=== PATIENT | female | born 1975 | race Caucasian/White ===

== ENCOUNTER 2017-06-26 12:13 | Emergency (ER) | payer BC ==
[~2017-06-26] VITALS: Ht 172.7 cm; Wt 64.9 kg
[2017-06-26 12:25] VITALS: BP 165/98; PULSE 110; RESP 16; TEMP 99.3; O2SAT 100
--- NOTE | 2017-06-26 12:54 | PD ---
HPI Chief Complaint: Dizziness Time Seen by Provider: 12:37 Travel History International Travel<30 days: No Contact w/Intl Traveler<30days: No Traveled to known affect area: No History of Present Illness HPI PATIENT C/O DIZZINESS INTERMITTENTLY, MALAISE, AND WEAKNESS WELL. NO PAIN, ONGOING FOR AT LEAST A WEEK, HAS HAD AN OCCASIONAL COUGH THOUGH NONPROD, NO FEVER, ALL: RASH TO [facility] PCP IS DR Yamini CAGLE PMHX DENIES PSHX DENIES X SINUS SURGERY PFSH Past Medical History Medical History: Denies Significant Hx Tetanus Vaccination: < 5 Years Influenza Vaccination: Yes ?: Not LMP: 06/19/17 Past Surgical History Surgical History: No Previous Surgery Social History Alcohol Use: No Tobacco Use: No Substance Use: No Allergies-Medications (Allergen,Severity, Reaction): Coded Allergies: No Known Allergies (Unverified , 06/26/17) Reported Meds & Prescriptions Reported Meds & Active Scripts Active No Active Prescriptions or Reported Medications Review of Systems Except as stated in HPI: all other systems reviewed are Neg HENT: Positive: Lightheadedness Physical Exam Narrative GENERAL: SKIN: Warm and dry. HEAD: Atraumatic. Normocephalic. EYES: Pupils equal and round. No scleral icterus. No injection or drainage. ENT: No nasal bleeding or discharge. Mucous membranes pink and moist. BILATERAL TM EFFUSION WITHOUT E/O INFECTION NECK: Trachea midline. No JVD. CARDIOVASCULAR: Regular rate and rhythm. RESPIRATORY: No accessory muscle use. Clear to auscultation. Breath sounds equal bilaterally. GASTROINTESTINAL: Abdomen soft, non-tender, nondistended. Hepatic and splenic margins not palpable. MUSCULOSKELETAL: Extremities without clubbing, cyanosis, or edema. No obvious deformities. NEUROLOGICAL: Awake and alert. No obvious cranial nerve deficits. Motor grossly within normal limits. Five out of 5 muscle strength in the arms and legs. Normal speech. PSYCHIATRIC: Appropriate mood and affect; insight and judgment normal. Data Data Last Documented VS Vital Signs Date Time Temp Pulse Resp B/P (MAP) Pulse Ox O2 Delivery O2 Flow Rate FiO2 06/26/17 15:00 100 18 129/80 (96) 100 Room Air 06/26/17 12:25 99.3 Orders Orders Electrocardiogram (06/26/17 12:37) Complete Blood Count With Diff (06/26/17 12:37) Comprehensive Metabolic Panel (06/26/17 12:37) Troponin I (06/26/17 12:37) B-Type Natriuretic Peptide (06/26/17 12:37) Prothrombin Time / Inr (Pt) (06/26/17 12:37) Act Partial Throm Time (Ptt) (06/26/17 12:37) Lipase (06/26/17 12:37) Urinalysis - C+S If Indicated (06/26/17 12:37) D-Dimer (06/26/17 12:37) Thyroid Stimulating Hormone (06/26/17 12:37) Influenzae A/B Antigen (06/26/17 12:37) Chest, Single Ap (06/26/17 12:37) Ct Brain W/O Iv Contrast(Rout) (06/26/17 12:37) Iv Access Insert/Monitor (06/26/17 12:37) Ecg Monitoring (06/26/17 12:37) Oximetry (06/26/17 12:37) Ed Urine Pregnancytest Poc (06/26/17 12:37) Drug Screen, Random Urine (06/26/17 12:37) Alcohol (Ethanol) (06/26/17 12:37) Salicylates (Aspirin) (06/26/17 12:37) Tylenol (Acetaminophen) (06/26/17 12:37) Ct Pulmonary Angiogram (06/26/17 14:29) Ct Abd/Pel W Iv Contrast(Rout) (06/26/17 15:12) Iohexol 350 Inj (Omnipaque 350 Inj) (06/26/17 15:45) Labs Laboratory Tests Test 06/26/17 13:20 06/26/17 13:30 Urine Collection Type CLEAN CATCH Urine Color YELLOW Urine Turbidity CLEAR Urine pH 7.0 Urine Specific Palmer 1.006 Urine Protein NEG mg/dL Urine Glucose (UA) NEG mg/dL Urine Ketones NEG mg/dL Urine Occult Blood TRACE Urine Nitrite NEG Urine Bilirubin NEG Urine Leukocyte Esterase NEG Urine RBC 0-3 /hpf Urine Squamous Epithelial Cells 0-5 /hpf Microscopic Urinalysis Comment CULT NOT INDICATED Urine Opiates Screen NEG Urine Barbiturates Screen NEG Urine Amphetamines Screen NEG Urine Benzodiazepines Screen NEG Urine Cocaine Screen NEG Urine Cannabinoids Screen NEG White Blood Count 6.2 TH/MM3 Red Blood Count 4.27 MIL/MM3 Hemoglobin 12.6 GM/DL Hematocrit 37.0 % Mean Corpuscular Volume 86.5 FL Mean Corpuscular Hemoglobin 29.5 PG Mean Corpuscular Hemoglobin Concent 34.1 % Red Cell Distribution Width 14.3 % Platelet Count 164 TH/MM3 Mean Platelet Volume 6.3 FL CBC Comment AUTO DIFF Differential Total Cells Counted 100 Neutrophils % (Manual) 62 % Band Neutrophils % 1 % Lymphocytes % 26 % Monocytes % 9 % Eosinophils % 1 % Basophils % 1 % Neutrophils # (Manual) 3.9 TH/MM3 Differential Comment FINAL DIFF MANUAL Prothrombin Time 10.7 SEC Prothromb Time International Ratio 1.0 RATIO Activated Partial Thromboplast Time 29.4 SEC D-Dimer Quantitative (PE/DVT) 2.76 MG/L FEU Blood Urea Nitrogen 9 MG/DL Creatinine 0.60 MG/DL Random Glucose 100 MG/DL Total Protein 8.1 GM/DL Albumin 3.6 GM/DL Calcium Level 8.7 MG/DL Alkaline Phosphatase 112 U/L Aspartate Amino Transf (AST/SGOT) 78 U/L Alanine Aminotransferase (ALT/SGPT) 120 U/L Total Bilirubin 0.5 MG/DL Sodium Level 137 MEQ/L Potassium Level 4.1 MEQ/L Chloride Level 102 MEQ/L Carbon Dioxide Level 27.9 MEQ/L Anion Gap 7 MEQ/L Estimat Glomerular Filtration Rate 111 ML/MIN Troponin I LESS THAN 0.02 NG/ML B-Type Natriuretic Peptide 74 PG/ML Lipase 133 U/L Thyroid Stimulating Hormone 3rd Gen 1.590 uIU/ML Salicylates Level LESS THAN 1.7 MG/DL Acetaminophen Level LESS THAN 2.0 MCG/ML Ethyl Alcohol Level LESS THAN 3 MG/DL MDM Medical Decision Making Medical Screen Exam Complete: Yes Emergency Medical Condition: Yes Medical Record Reviewed: Yes Interpretation(s) NSR 97, NO STEMI PATTERN, Differential Diagnosis ANEMIA V DEHYDRATION V V PNA V UTI Narrative Course NO E/O THYROID ABNL, DEHYDRATION, ANEMIA, UTI, OR PNA ON EXAMINATION, HOWEVER ISOLATED ELEVATED D DIMER WAS THE REASON FOR FURTHER INVESTIGATION WITH CT AND ULTRS. no major e/o appy, also no major e/o dvt/pe/aaa on ct study, did find e/ o ovarian cyst (ruptured) which is not significant. additionally on reevaluation abdomen continues without tenderness or pain. patient will be d/c home and advised to follow up with your pcp Diagnosis Primary Impression: GENERAL WEAKNESS WITHOUT SOURCE Additional Instructions: please followup with dr cagle for any additional referrals or evaluation. no evidence of blood clot on ultrasound or clot to your lungs either. Scripts No Active Prescriptions or Reported Meds Disposition: 01 DISCHARGE HOME Condition: Stable Artur Mishra MD Jun 26, 2017 12:54
--- NOTE | 2017-06-26 13:16 | RADRPT ---
EXAM DATE/TIME: 06/26/2017 12:51 [facility] COMPARISON: No previous studies available for comparison. INDICATIONS : Weakness and dizziness for 3 months. MEDICAL HISTORY : None. SURGICAL HISTORY : None. ENCOUNTER: Initial ACUITY: 3 months PAIN SCORE: 0/10 LOCATION: Bilateral chest FINDINGS: A single view of the chest demonstrates the lungs to be symmetrically aerated without evidence of mas s, infiltrate or effusion. The cardiomediastinal contours are unremarkable. Osseous structures are intact. CONCLUSION: 1. No acute cardiopulmonary disease. Darshan Wang MD on June 26, 2017 at 13:15 Board Certified Radiologist. This report was verified electronically.
[2017-06-26 13:30] VITALS: O2SAT 99
[2017-06-26 13:36] LABS: MEAN CELL VOLUME 86.5 FL (80.0-100.0); MEAN CORPUSCULAR HEMOGLOBIN 29.5 PG (27.0-34.0); MEAN CORPUSCULAR HGB CONC 34.1 % (32.0-36.0); PLATELET COUNT 164 TH/MM3 (150-450); RED BLOOD COUNT 4.27 MIL/MM3 (4.00-5.30); RED CELL DISTRIBUTION WIDTH 14.3 % (11.6-17.2); WHITE BLOOD COUNT 6.2 TH/MM3 (4.0-11.0)
[2017-06-26 13:37] LABS: GLUCOSE,URINE NEG (NEG); KETONE, URINE NEG (NEG); NITRITE,URINE NEG (NEG)
[2017-06-26 13:39] LABS: BLOOD, URINE TRACE (NEG)
[2017-06-26 13:40] LABS: METHOD OF COLLECTION CLEAN CATCH; URINE COLOR YELLOW (YELLW/STRAW)
[2017-06-26 13:42] LABS: HEMO FLAGS AUTO DIFF
[2017-06-26 13:46] LABS: COMMENT (UR) CULT NOT INDICATED; CULTURE IF INDICATED CULT NOT INDICATED; RBC, URINE 0-3 /hpf (0-3); SQUAMOUS EPITHELIAL CELL URINE 0-5 /hpf (0-5)
[2017-06-26 13:46] LABS: CHLORIDE 102 MEQ/L (98-107); POTASSIUM 4.1 MEQ/L (3.5-5.1); SODIUM (NA) 137 MEQ/L (136-145)
[2017-06-26 13:49] LABS: ANION GAP 7 MEQ/L (5-15); BICARBONATE 27.9 MEQ/L (21.0-32.0); BLOOD UREA NITROGEN 9 MG/DL (7-18)
[2017-06-26 13:53] LABS: AST (GOT) 78 U/L (15-37)
[2017-06-26 13:54] LABS: ALT (GPT) 120 U/L (10-53); GLOMERULAR FILTRATION RATE 111 ML/MIN (>89)
[2017-06-26 13:55] LABS: ALCOHOL LESS THAN 3 MG/DL (0-5)
[2017-06-26 13:56] LABS: TOTAL BILIRUBIN ADULT 0.5 MG/DL (0.2-1.0)
[2017-06-26 13:58] LABS: ALKALINE PHOSPHATASE 112 U/L (45-117)
[2017-06-26 14:06] LABS: BANDS 1 % (0-6); BASOPHILS 1 % (0-2); EOSINOPHILS 1 % (0-4); NEUTROPHIL # MANUAL DIFF 3.9 TH/MM3 (1.8-7.7); POLYS (SEG NEUTROPHILS) 62 % (16-70); WBC DIFF SAMPLE 100
[2017-06-26 14:07] LABS: SCAN/DIFF FINAL DIFF MANUAL
[2017-06-26 14:18] LABS: APTT (PATIENT) 29.4 SEC (24.3-30.1); PROTHROMBIN TIME - PATIENT 10.7 SEC (9.8-11.6)
--- NOTE | 2017-06-26 14:28 | RADRPT ---
EXAM DATE/TIME: 06/26/2017 14:13 [facility] COMPARISON: No previous studies available for comparison. INDICATIONS : Dizziness and generalized weakness. RADIATION DOSE: 56.72 CTDIvol (mGy) MEDICAL HISTORY : None SURGICAL HISTORY : None. ENCOUNTER: Initial ACUITY: 1 week PAIN SCALE: 0/10 LOCATION: cranial TECHNIQUE: Multiple contiguous axial images were obtained of the head. Using automated exposure control and adj ustment of the mA and/or kV according to patient size, radiation dose was kept as low as reasonably a chievable to obtain optimal diagnostic quality images. DICOM format image data is available electro nically for review and comparison. FINDINGS: CEREBRUM: The ventricles are normal for age. No evidence of midline shift, mass lesion, hemorrhage or acute in farction. Asymmetric basal ganglia calcifications on the right. No extra-axial fluid collections are seen. POSTERIOR FOSSA: The cerebellum and brainstem are intact. The 4th ventricle is midline. The cerebellopontine angle i s unremarkable. EXTRACRANIAL: The visualized portion of the orbits is intact. SKULL: The calvaria is intact. No evidence of skull fracture. CONCLUSION: 1. Asymmetric, benign-appearing basal ganglia calcification on the right. 2. Otherwise negative. Nothing acute. Stevie Michaud MD on June 26, 2017 at 14:24 Board Certified Radiologist. This report was verified electronically.
[2017-06-26 15:00] VITALS: BP 129/80; PULSE 100; RESP 18; O2SAT 100
[2017-06-26] MEDS ORDERED: IOHEXOL 350 MG/ML 10 ML VIAL (for RAD DIAG) IVCONTRAST ONE (15:45)
--- NOTE | 2017-06-26 15:59 | RADRPT ---
EXAM DATE/TIME: 06/26/2017 15:33 [facility] COMPARISON: No previous studies available for comparison. INDICATIONS : Dizziness, lightheaded general weakness for one week IV CONTRAST: 95 cc Omnipaque 350 (iohexol) IV ; Cumulative dose for multiple exams. RADIATION DOSE: 10.73 CTDIvol (mGy) MEDICAL HISTORY : None SURGICAL HISTORY : None. ENCOUNTER: Initial ACUITY: 1 day PAIN SCALE: 0/10 LOCATION: chest TECHNIQUE: Volumetric scanning of the chest was performed using a pulmonary embolism protocol MIP images were re constructed. Using automated exposure control and adjustment of the mA and/or kV according to patien t size, radiation dose was kept as low as reasonably achievable to obtain optimal diagnostic quality images. DICOM format image data is available electronically for review and comparison. Follow-up recommendations for detected pulmonary nodules are based at a minimum on nodule size and pa tient risk factors according to Fleischner Society Guidelines. FINDINGS: PULMONARY ARTERIES: No filling defects are seen in the pulmonary arteries through the segmental level. LUNGS: Mild lingular scarring or atelectasis. PLEURAE: There is no pleural thickening or pleural effusion. MEDIASTINUM: There is good visualization of the great vessels of the middle mediastinum. No evidence of mediastin al or hilar adenopathy/mass. MUSCULOSKELETAL: Within normal limits for patient age. MISCELLANEOUS: Mild splenomegaly. CONCLUSION: No evidence of pulmonary embolism. Minimal lingular atelectasis. Mild splenomegaly Dylon Guillen MD on June 26, 2017 at 15:55 Board Certified Radiologist. This report was verified electronically.
[2017-06-26 16:02] LABS: ACETAMINOPHEN LESS THAN 2.0 MCG/ML (10.0-30.0)
--- NOTE | 2017-06-26 16:03 | RADRPT ---
EXAM DATE/TIME: 06/26/2017 15:33 [facility] COMPARISON: No previous studies available for comparison. INDICATIONS : Generalzed wekness for 1 week IV CONTRAST: 95 cc Omnipaque 350 (iohexol) IV ; Cumulative dose for multiple exams. ORAL CONTRAST: No oral contrast ingested. RADIATION DOSE: 12.30 CTDIvol (mGy) MEDICAL HISTORY : None SURGICAL HISTORY : None. ENCOUNTER: Initial ACUITY: 1 day PAIN SCALE: 0/10 LOCATION: Abdomen TECHNIQUE: Volumetric scanning of the abdomen and pelvis was performed. Using automated exposure control and ad justment of the mA and/or kV according to patient size, radiation dose was kept as low as reasonably achievable to obtain optimal diagnostic quality images. DICOM format image data is available electro nically for review and comparison. FINDINGS: LOWER LUNGS: Minimal scarring in the extreme lingula. LIVER: Homogeneous density without lesion. There is no dilation of the biliary tree. No calcified gallston es. SPLEEN: Spleen is borderline in size. PANCREAS: Within normal limits. KIDNEYS: Normal in size and shape. There is no mass, stone or hydronephrosis. ADRENAL GLANDS: Within normal limits. VASCULAR: Abdominal aorta is normal in caliber containing minimal calcified plaque distally at the bifurcation. No significant mural thrombus or aneurysm. Proximal aortic visceral branches are patent. BOWEL/MESENTERY: The stomach, small bowel, and colon demonstrate no acute abnormality. Appendix is visualized and nor mal in appearance. There is no free intraperitoneal air or fluid. ABDOMINAL WALL: Within normal limits. RETROPERITONEUM: Mildly distended but otherwise unremarkable. BLADDER: No wall thickening or mass. REPRODUCTIVE: There is a small hypodense right adnexal cystic lesion measuring approximately 1 cm. Very subtle flui d is demonstrated surrounding the right ovary extending to the appendix tip. The uterus is unremarkab le for age. INGUINAL: There is no lymphadenopathy or hernia. MUSCULOSKELETAL: Within normal limits for patient age. CONCLUSION: 1. Very subtle free fluid in the right adnexal region surrounding the right ovary. There is a small p robable 1 cm cyst in the right ovary. The appendix tip also extends to this region of fluid. The appe ndix itself appears unremarkable. Overall, findings are most consistent with a possible ruptured ovar oneil cyst. Although unlikely, developing appendicitis cannot be entirely excluded. Therefore, clinical correlation is recommended. 2. Normal-appearing abdominal aorta. No focal aortic abnormality as questioned. Darshan Wang MD on June 26, 2017 at 15:53 Board Certified Radiologist. This report was verified electronically.
[2017-06-26 17:20] VITALS: BP 138/74; PULSE 88; RESP 18; O2SAT 99
--- NOTE | 2017-06-27 14:30 | EKG ---
Date Performed: 06/26/2017 Time Performed: 12:55:03 PTAGE: 41 years EKG: Sinus rhythm POSSIBLE LEFT ATRIAL ENLARGEMENT BORDERLINE ECG NO PREVIOUS TRACING DOCTOR: Walter Cuadra Interpretating Date/Time 06/27/2017 14:29:57
== END 2017-06-26 17:28 | disposition home or self-care (01) ==
LOC: PHED 12:13
DX: R53.1 Weakness (principal)
CPT/HCPCS: 70450; 71010; 71275; 74177; 80053; 80307; 81001; 83690; 83880; 84443; 84484; 84703; 85007; 85027; 85379; 85610; 85730; 87804; 93005; 99285; Q9967

== ENCOUNTER 2018-03-09 16:02 | Emergency (ER) | payer BC, OTHER ==
[~2018-03-09] VITALS: Ht 172.7 cm; Wt 63.0 kg
[2018-03-09 16:07] VITALS: BP 155/90; TEMP 99.8; O2SAT 100
[2018-03-09] MEDS ORDERED: FAMC500T PO (16:16)
[2018-03-09] MEDS ORDERED: SODIUM CHLORID 0.9% 500 ML INJ 500 ML IV ONE (16:30)
--- NOTE | 2018-03-09 16:31 | PD ---
HPI Chief Complaint: Fast heart rate Time Seen by Provider: 16:15 Travel History International Travel<30 days: No Contact w/Intl Traveler<30days: No Traveled to known affect area: No History of Present Illness HPI 42-year-old female states for the past year she has been struggling with mononucleosis. She states because of this she gets a fast heart rate in her usual heart rate is in the 1 teens. She states today it was 140 and she try to calm down and it did not get better so she elected to come here. She states she does have history also of anxiety. She denies any other concurrent complaints other than the elevated heart rate. She states that she has been struggling with this today. She denies specific modifying factors. PFSH Past Medical History Diminished Hearing: No Medical other: Yes (CMV, MONO) Influenza Vaccination: Yes ?: Not LMP: 02/2018 Social History Alcohol Use: No Tobacco Use: No Substance Use: No Allergies-Medications (Allergen,Severity, Reaction): Coded Allergies: No Known Allergies (Unverified Adverse Reaction, Unknown, 03/09/18) Reported Meds & Prescriptions Reported Meds & Active Scripts Active Reported Famciclovir 500 Mg Tab 500 Mg PO BID Review of Systems Except as stated in HPI: all other systems reviewed are Neg Physical Exam Narrative GENERAL: 42-year-old female in no apparent distress SKIN: Focused skin assessment warm/dry. HEAD: Atraumatic. Normocephalic. EYES: Pupils equal and round. No scleral icterus. No injection or drainage. ENT: No nasal bleeding or discharge. Mucous membranes pink and moist. NECK: Trachea midline. CARDIOVASCULAR: Tachycardic rate and regular rhythm. No murmur appreciated. RESPIRATORY: No accessory muscle use. Clear to auscultation. Breath sounds equal bilaterally. GASTROINTESTINAL: Abdomen soft, non-tender, nondistended. MUSCULOSKELETAL: No obvious deformities. No clubbing. No cyanosis. NEUROLOGICAL: Awake and alert. No obvious cranial nerve deficits. Motor grossly within normal limits. Normal speech. Data Data Last Documented VS Vital Signs Date Time Temp Pulse Resp B/P (MAP) Pulse Ox O2 Delivery O2 Flow Rate FiO2 03/09/18 16:37 102 18 128/76 (93) 98 Room Air 03/09/18 16:07 99.8 Orders Orders Complete Blood Count With Diff (03/09/18 16:25) Basic Metabolic Panel (Bmp) (03/09/18 16:25) Electrocardiogram (03/09/18 ) Iv Access Insert/Monitor (03/09/18 16:25) Ecg Monitoring (03/09/18 16:25) Oximetry (03/09/18 16:25) Sodium Chlorid 0.9% 500 Ml Inj (Ns 500 M (03/09/18 16:30) Ed Discharge Order (03/09/18 17:21) Labs Laboratory Tests Test 03/09/18 16:20 White Blood Count 9.1 TH/MM3 Red Blood Count 4.74 MIL/MM3 Hemoglobin 14.4 GM/DL Hematocrit 43.6 % Mean Corpuscular Volume 92.0 FL Mean Corpuscular Hemoglobin 30.4 PG Mean Corpuscular Hemoglobin Concent 33.0 % Red Cell Distribution Width 12.2 % Platelet Count 228 TH/MM3 Mean Platelet Volume 8.0 FL Neutrophils (%) (Auto) 65.3 % Lymphocytes (%) (Auto) 30.1 % Monocytes (%) (Auto) 3.3 % Eosinophils (%) (Auto) 0.9 % Basophils (%) (Auto) 0.4 % Neutrophils # (Auto) 6.0 TH/MM3 Lymphocytes # (Auto) 2.7 TH/MM3 Monocytes # (Auto) 0.3 TH/MM3 Eosinophils # (Auto) 0.1 TH/MM3 Basophils # (Auto) 0.0 TH/MM3 CBC Comment DIFF FINAL Differential Comment Blood Urea Nitrogen 17 MG/DL Creatinine 0.95 MG/DL Random Glucose 98 MG/DL Calcium Level 8.9 MG/DL Sodium Level 140 MEQ/L Potassium Level 3.9 MEQ/L Chloride Level 105 MEQ/L Carbon Dioxide Level 25.5 MEQ/L Anion Gap 10 MEQ/L Estimat Glomerular Filtration Rate 65 ML/MIN MDM Medical Decision Making Medical Screen Exam Complete: Yes Emergency Medical Condition: Yes Medical Record Reviewed: Yes (Past history confirmed) Interpretation(s) EKG shows sinus tachycardia CBC & BMP Diagram 03/09/18 16:20 Calcium Level 8.9 Differential Diagnosis Dehydration, anxiety, anemia Narrative Course Will check basic blood work and if this is normal she can follow as an outpatient. She is in agreement to that. Current heart rate while I was in the room was 110. labs wnl, Patient denies any new complaints and states that they are feeling better. Patient happy with care, all questions answered. Patient knows that follow up is incumbent on them and to return to the emergency room immediately if new or worsening symptoms develop. Patient given strict return precautions, vitals reviewed and are normal, agrees to further workup as an outpatient. Diagnosis Primary Impression: Tachycardia Patient Instructions: General Instructions Additional Instructions: return as needed, follow with primary this week Med/Other Pt SpecificInfo: No Change to Meds Disposition: 01 DISCHARGE HOME Condition: Stable Annalisa Dooley MD Mar 09, 2018 16:31
[2018-03-09 16:37] VITALS: BP 128/76; PULSE 102; RESP 18; O2SAT 98
[2018-03-09 16:58] LABS: BASOPHIL % 0.4 % (0.0-2.0); EOSINOPHIL # 0.1 TH/MM3 (0-0.4); EOSINOPHIL % 0.9 % (0.0-4.0); HEMATOCRIT 43.6 % (35.0-46.0); HEMOGLOBIN 14.4 GM/DL (11.6-15.3); LYMPH % 30.1 % (9.0-44.0); LYMPHOCYTE # 2.7 TH/MM3 (1.0-4.8); MEAN CORPUSCULAR HEMOGLOBIN 30.4 PG (27.0-34.0); MONO % 3.3 % (0.0-8.0); MONOCYTE # 0.3 TH/MM3 (0-0.9); NEUT % 65.3 % (16.0-70.0); PLATELET COUNT 228 TH/MM3 (150-450); RED BLOOD COUNT 4.74 MIL/MM3 (4.00-5.30); RED CELL DISTRIBUTION WIDTH 12.2 % (11.6-17.2); WHITE BLOOD COUNT 9.1 TH/MM3 (4.0-11.0)
[2018-03-09 17:11] LABS: CALCIUM 8.9 MG/DL (8.5-10.1)
[2018-03-09 17:12] LABS: BICARBONATE 25.5 MEQ/L (21.0-32.0)
[2018-03-09 17:15] LABS: CREATININE 0.95 MG/DL (0.50-1.00)
[2018-03-09 17:49] VITALS: BP 128/77
--- NOTE | 2018-03-10 13:50 | EKG ---
Date Performed: 03/09/2018 Time Performed: 16:09:47 PTAGE: 42 years EKG: SINUS TACHYCARDIA ABNORMAL RHYTHM ECG PREVIOUS TRACING : 06/26/2017 12.55 Since the previous tracing, no significant change noted DOCTOR: Benja Rea Interpretating Date/Time 03/10/2018 13:45:05
== END 2018-03-09 17:53 | disposition home or self-care (01) ==
LOC: PHED 16:02
DX: R00.0 Tachycardia, unspecified (principal); B27.90 Infectious mononucleosis, unspecified without complication; F41.9 Anxiety disorder, unspecified; R94.31 Abnormal electrocardiogram [ECG] [EKG]
CPT/HCPCS: 80048; 85025; 93005; 96360; 99284; J7040